=== PATIENT | male | born 1985 | race Two or more races ===

== ENCOUNTER 2018-04-29 16:46 | Emergency (ER) | payer SELFPAY ==
[2018-04-29] MEDS ORDERED: ACETAMINOPHEN 500 MG TAB PO ONE (17:10)
[2018-04-29] MEDS ORDERED: NS 1,000 ML IV ONE ×2 (17:10)
[2018-04-29] MEDS ORDERED: IBUPROFEN 600 MG TAB PO ONE (17:10)
--- NOTE | 2018-04-29 17:25 | EDPHY ---
H & P Stated Complaint: n/v fever Time Seen by Provider: 04/29/18 17:04 HPI/ROS: Chief complaint: Cold symptoms History of present illness: This is an otherwise healthy 33-year-old male who presents to the emergency department family for cold symptoms. Patient reports the sudden onset of symptoms yesterday. He has had fevers, runny nose, sore throat, chest congestion with trouble breathing, body aches and generalized malaise. He has used [id number] medications including ibuprofen with minimal effect. No reported associated signs or symptoms such as headache or rash. He did not receive the flu immunization this year. Animal Keeper Head is at at bedside. - Personal History Current Tetanus/Diphtheria Vaccine: Yes Current Tetanus Diphtheria and Acellular Pertussis (TDAP): Yes - Social History Smoking Status: Current some day smoker - Physical Exam Exam: General Appearance: Alert, no distress. Eyes: Pupils equal and round no pallor or injection. ENT, Mouth: Mucous membranes moist. Tympanic membranes, external auditory canals, external ears and surrounding soft tissue including over the mastoids are unremarkable. Nasopharynx is not injected. There is no rhinorrhea. Oropharynx is injected. There is no edema. There is no exudate. There is no asymmetry. The uvula is midline. No elevation of the tongue. There is no hoarseness, no drooling, no trismus, no stridor. Respiratory: There are no retractions, lungs are clear to auscultation. Cardiovascular: Regular rate and rhythm. Neurological: Alert and oriented. No meningismus. Skin: Warm and dry, no rashes. Musculoskeletal: Neck is supple non tender. Extremities are symmetrical, full range of motion. Psychiatric: Patient is oriented X 3, there is no agitation. Constitutional: Initial Vital Signs Temperature (C) 37.5 C 04/29/18 16:51 Heart Rate 129 H 04/29/18 16:51 Respiratory Rate 20 04/29/18 16:51 Blood Pressure 116/87 H 04/29/18 16:51 O2 Sat (%) 94 04/29/18 16:51 O2 Delivery Mode Room Air Allergies/Adverse Reactions: No Known Allergies Allergy (Unverified 04/29/18 16:49) Home Medications: Medication Instructions Recorded Oseltamivir Phosphate [Tamiflu 75 75 mg PO BID #9 cap 04/29/18 mg (*)] Medical Decision Making - Diagnostics Imaging Results: Imaging Impressions Chest X-Ray 04/29/18 17:10 Impression: 1. Poor inspiration with compressive changes at the lung bases. Superimposed bibasilar dependent edema or infiltrates cannot be completely excluded. Imaging: Discussed imaging studies w/ dry placer machine operator Radiologist, I viewed and interpreted images myself ED Course/Re-evaluation: Patient seen under the supervision of my secondary supervising physician Dr. Dominique Davis. Patient presents with cold symptoms. He is nontoxic. He is influenza A positive, he is within treatment time frame and I have started him on Tamiflu. Although chest x-ray with poor inspiration, lung sounds are clear, I do not believe repeat x-ray is warranted. He is symptomatically treated with improvement in symptoms. He is discharged home. Home care is discussed. He is to follow up with the primary care doctor for recheck. Strict return precautions are given. The patient voiced understanding and agreement with plan. Differential Diagnosis: Included but not limited to URI such as pharyngitis as well is lower respiratory tract infection such as bronchitis and pneumonia, influenza, doubtful more severe disease such as meningitis or a sepsis presentation - Data Points Laboratory Results: 04/29/18 17:15 Nasal Influenza A PCR FLU A DETECTED H (NEGATIVE) Nasal Influenza B PCR NEGATIVE FOR FLU B (NEGATIVE) Medications Given: Discontinued Medications Acetaminophen (Tylenol) 1,000 mg PO EDNOW ONE Stop: 04/29/18 17:11 Last Admin: 04/29/18 17:43 Dose: 1,000 mg Hydrocodone Bitart/Acetaminophen ([place] 5/325) 1 tab PO EDNOW ONE Stop: 04/29/18 19:47 Last Admin: 04/29/18 19:49 Dose: 1 tab Sodium Chloride (Ns) 1,000 mls @ 0 mls/hr IV EDNOW ONE; Wide Open PRN Reason: Protocol Stop: 04/29/18 17:11 Last Admin: 04/29/18 17:16 Dose: 1,000 mls Sodium Chloride (Ns) 1,000 mls @ 0 mls/hr IV EDNOW ONE; Wide Open PRN Reason: Protocol Stop: 04/29/18 17:11 Last Admin: 04/29/18 17:44 Dose: 1,000 mls Ibuprofen (Motrin) 600 mg PO EDNOW ONE Stop: 04/29/18 17:11 Last Admin: 04/29/18 17:43 Dose: 600 mg Oseltamivir Phosphate (Tamiflu) 75 mg PO EDNOW ONE Stop: 04/29/18 18:08 Last Admin: 04/29/18 18:11 Dose: 75 mg Departure - Departure Disposition: Home, Routine, Self-Care Clinical Impression: Influenza A Condition: Good Instructions: Influenza (ED) Additional Instructions: Follow-up with a primary care doctor early next week for recheck Drink plenty of fluids to stay hydrated, get plenty of rest Use ibuprofen 600 mg every 6-8 hours for fever and pain Take Tamiflu twice a day until finished If symptoms worsen or new symptoms develop return to the emergency room for recheck Referrals: NONE *PRIMARY CARE P,. [Primary Care Provider] - As per Instructions [facility],. [Clinic] - As per Instructions Prescriptions: Oseltamivir Phosphate [Tamiflu 75 mg (*)] 75 mg PO BID #9 cap
[2018-04-29] MEDS ORDERED: OSELTAMIVIR PHOSPHATE 75 MG CAP PO ONE (18:07)
[2018-04-29] MEDS ORDERED: HYDROCODONE/APAP 5/325 TAB PO ONE (19:46)
[2018-04-29 20:08] VITALS: BP 123/70
== END 2018-04-29 20:14 | disposition home or self-care (01) ==
DX: J10.1 Influenza due to other identified influenza virus with other respiratory manifestations (principal)